=== PATIENT | male | born 1965 | race Caucasian/White ===

== ENCOUNTER 2018-02-03 14:39 | Emergency (ER) | payer SELFPAY ==
[2018-02-03 14:50] VITALS: BP 150/93
--- NOTE | 2018-02-03 15:45 | CR ---
Clinical history: 52-year-old male pain and swelling right knee. Interpretation: Suprapatellar bursal effusion this patient with chondromalacia patella and tiny marginal arthritic sp ur patellofemoral surface of patella. Bony spurs involving the intercondylar tibial spines but symmetric normal spacing of the knee joint. Homogeneous normal bone density without sign of pathologic skeletal lesion, right knee fracture, disl ocation or radiopaque loose joint body. CONCLUSION: Arthritis.
--- NOTE | 2018-02-03 15:50 | CR ---
Clinical history: 52-year-old male pain and swelling right knee, ankle and foot. Interpretation: 3 views right foot confirms soft tissue swelling over the dorsum and right ankle join t effusion with bimalleolar soft tissue swelling. History trauma? Multiarticular arthritis? No sign of right foot fracture or dislocation (minimal arthritic changes first metatarsophalangeal isabel ints great toe and tiny heel spurs at the insertion Achilles tendon and plantar aponeurosis on the os calcis). No foreign bodies or inflammatory periostitis.
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
[2018-02-03] MEDS ORDERED: Acetaminophen/HYDROcodone 325-5 MG Tab PO ONE (16:16)
[2018-02-03 16:21] LABS: SODIUM,NA 135 mmol/L (135-145)
--- NOTE | 2018-02-03 17:59 | CR ---
Clinical history: 52-year-old male pain and swelling right ankle. Interpretation: Bimalleolar soft tissue swelling and right ankle joint effusion. Homogeneous normal bone density without sign of right ankle fracture or disruption of the tibiotalar mortise joint symmetry (there are some marginal spurs medial and lateral malleolus). Small heel spurs at the insertion Achilles tendon and plantar aponeurosis on the os calcis. No foreign bodies. CONCLUSION: Arthritis. Pronounced soft tissue swelling and ankle joint effusion.
== END 2018-02-03 16:25 | disposition home or self-care (01) ==
LOC: DL.ED 14:39
DX: M10.49 Other secondary gout, multiple sites (principal); M79.89 Other specified soft tissue disorders; M25.561 Pain in right knee; M25.461 Effusion, right knee; M25.571 Pain in right ankle and joints of right foot; F17.210 Nicotine dependence, cigarettes, uncomplicated
CPT/HCPCS: 36415; 73562; 73610; 73630; 80048; 84550; 85025; 99283; A9270

== ENCOUNTER 2021-03-17 08:22 | Emergency (ER) | payer MEDICAID ==
[2021-03-17] MEDS ORDERED: Sodium Chloride 0.9% 10 ML Syringe FLUSH PRN (08:31)
--- NOTE | 2021-03-17 08:31 | EDM.PDOC ---
"ED HPI GENERAL MEDICAL PROBLEM - General Chief Complaint: Chest Pain Stated Complaint: [id number] CHEST PAIN Time Seen by Provider: 03/17/21 08:31 Source of Information: Reports: Patient, Family, Old Records, RN, RN Notes Reviewed History Limitations: Reports: No Limitations - History of Present Illness INITIAL COMMENTS - FREE TEXT/NARRATIVE: Pt presents to ER with complaints of left side chest pain that started last after he hit his chest with a tool. Pt states he had to lay on a board to pull a well pump up by hand. This morning he reports feeling a pop and/or clicking in his left lateral middle ribs. Pain is 9/10 with movement or deep cough. At rest there is no pain. Denies nausea, vomiting, and no shortness of breath. Onset: Sudden Onset Date: 03/12/21 Duration: Constant, Getting Worse Location: Reports: Chest Quality: Reports: Ache Severity: Severe Improves with: Reports: Immobilization, Rest Worsens with: Reports: Breathing, Movement Associated Symptoms: Reports: No Other Symptoms Treatments FACIAL OPERATOR: Reports: NSAIDS - Related Data Allergies Allergy/AdvReac Type Severity Reaction Status Date / Time indomethacin Allergy Other Verified 04/30/19 12:10 fluticasone AdvReac Intermediate Headache Verified 04/30/19 12:10 [From Advair Diskus] salmeterol AdvReac Intermediate Headache Verified 04/30/19 12:10 [From Advair Diskus] Home Meds: Home Meds Acetaminophen [Tylenol] 650 mg PO Q4H PRN tablet 06/19/18 [Rx] Albuterol [Ventolin HFA] 2 puff INH Q6H PRN 08/16/18 [History] Ibuprofen 800 mg PO PRN 04/30/19 [History] Past Medical History - Past Health History Medical/Surgical History: Denies Medical/Surgical History HEENT History: Reports: Impaired Vision Cardiovascular History: Reports: None Respiratory History: Reports: Asthma Gastrointestinal History: Reports: Bowel Obstruction, Colon Polyp, Diverticulosis, Other (See Below) Other Gastrointestinal History: S/P COLONIC TUBULAR ADENOMA Genitourinary History: Reports: None Musculoskeletal History: Reports: Back Pain, Chronic, Gout Neurological History: Reports: None Psychiatric History: Reports: None Endocrine/Metabolic History: Reports: None Hematologic History: Reports: None Immunologic History: Reports: None Oncologic (Cancer) History: Reports: None Dermatologic History: Reports: None - Infectious Disease History Infectious Disease History: Reports: Chicken Pox - Past Surgical History Head Surgeries/Procedures: Reports: None HEENT Surgical History: Reports: None Cardiovascular Surgical History: Reports: None Respiratory Surgical History: Reports: None GI Surgical History: Reports: Colonoscopy, Polypectomy Male Surgical History: Reports: None Endocrine Surgical History: Reports: None Neurological Surgical History: Reports: None Musculoskeletal Surgical History: Reports: Arthroscopic Knee, Other (See Below) Other Musculoskeletal Surgeries/Procedures:: back surgery Oncologic Surgical History: Reports: None Dermatological Surgical History: Reports: None Social & Family History - Family History Family Medical History: No Pertinent Family History - Tobacco Use Tobacco Use Status *Q: Current Every Day Tobacco User Tobacco Use Within Last Twelve Months: Cigarettes - Caffeine Use Caffeine Use: Reports: Coffee Other Caffeine Use: AVERAGE OF 3-4 CUPS DAILY - Living Situation & Occupation Living situation: Reports: , with Family Occupation: Employed ED ROS GENERAL - Review of Systems Review Of Systems: Comprehensive ROS is negative, except as noted in HPI. ED EXAM, GENERAL - Physical Exam Exam: See Below Exam Limited By: No Limitations General Appearance: Alert, WD/WN, No Apparent Distress Nose: Normal Inspection Throat/Mouth: Normal Lips, Normal Voice, No Airway Compromise Head: Atraumatic, Normocephalic Neck: Normal Inspection, Supple, Non-Tender, Full Range of Motion Respiratory/Chest: No Respiratory Distress, Lungs Clear, Normal Breath Sounds, No Accessory Muscle Use, Other (Focal left lateral chest wall tenderness just below the left breast, no visible bruising, redness, swelling, or deformity.) Cardiovascular: Normal Peripheral Pulses, Regular Rate, Rhythm, No Edema, No Gallop, No JVD, No Murmur, No Rub GI/Abdominal: Normal Bowel Sounds, Soft, Non-Tender Back Exam: Normal Inspection. No: Vertebral Tenderness Extremities: Normal Inspection, Normal Range of Motion, Non-Tender, Normal Capillary Refill, No Pedal Edema Neurological: Alert, Oriented, CN II-XII Intact, Normal Cognition, Normal Gait, No Motor/Sensory Deficits Psychiatric: Normal Affect, Normal Mood Skin Exam: Warm, Dry, Intact, Normal Color, No Rash #1 Interpretation EKG Date: 03/17/21 Time: 08:32 Rhythm: Other (SR) Rate (Beats/Min): 85 [place]: Normal P-Wave: Present QRS: Normal ST-T: Normal QT: Normal Comparison: NA - No Prior EKG Course - Vital Signs Last Recorded V/S: Last Vital Signs Temp 98.1 F 03/17/21 08:37 Pulse 93 03/17/21 08:37 Resp 16 03/17/21 08:37 BP 149/101 H 03/17/21 08:37 Pulse Ox 99 03/17/21 08:37 - Orders/Labs/Meds Orders: Active Orders 24 hr Category Date Time Status EKG 12 Lead [EKG Documentation Completion] [] STAT Care 03/17/21 08:24 Active Peripheral IV Care [RC] . DIRECTED Care 03/17/21 08:31 Active Sodium Chloride 0.9% [Saline Flush] Med 03/17/21 08:31 Active 10 ml FLUSH ASDIRECTED PRN Peripheral IV Insertion Adult [OM.PC] Stat Oth 03/17/21 08:31 Ordered Medication Orders Sodium Chloride (Sodium Chloride 0.9% 10 Ml Syringe) 10 ml FLUSH ASDIRECTED PRN PRN Reason: Keep Vein Open Last Admin: 03/17/21 08:45 Dose: 10 ml Documented by: YVONNE Labs: Laboratory Tests 03/17/21 03/17/21 Range/Units 08:34 08:34 WBC 3.7 L (5.0-10.0) 10^3/uL RBC 4.46 L (4.6-6.2) 10^6/uL Hgb 14.8 (14.0-18.0) g/dL Hct 44.1 (40.0-54.0) % MCV 98.9 D (80-100) fL MCH 33.2 (27.0-34.0) pg MCHC 33.6 (33.0-35.0) g/dL Plt Count 143 L (150-450) 10^3/uL Neut % (Auto) 53.1 (42.2-75.2) % Lymph % (Auto) 31.6 (20.5-50.1) % [place] % (Auto) 12.1 H (2-8) % Eos % (Auto) 2.4 (1.0-3.0) % Baso % (Auto) 0.8 (0.0-1.0) % Sodium 133 L (136-145) mmol/L Potassium 4.0 (3.5-5.1) mmol/L Chloride 97 L (98-107) mmol/L Carbon Dioxide 22 (21-32) mmol/L Anion Gap 18.0 H (7-13) mEq/L BUN 7 (7-18) mg/dL Creatinine 0.94 (0.70-1.30) mg/dL Est Cr Clr Drug Dosing TNP Estimated GFR (MDRD) > 60 BUN/Creatinine Ratio 7.4 (No establ ref range) Glucose 196 H (70-99) mg/dL Calcium 8.6 (8.5-10.1) mg/dL Total Bilirubin 0.9 (0.2-1.0) mg/dL AST 86 H (15-37) U/L ALT 89 H (16-63) U/L Alkaline Phosphatase 73 (46-116) U/L Troponin I High Sens 6 (<=76) pg/mL Total Protein 7.6 (6.4-8.2) g/dL Albumin 3.8 (3.4-5.0) g/dL Globulin 3.8 Albumin/Globulin Ratio 1.0 Meds: Medications Generic Name Dose Route Start Last Admin Trade Name Freq PRN Reason Stop Dose Admin Sodium Chloride 10 ml 03/17/21 08:31 03/17/21 08:45 Sodium Chloride 0.9% 10 Ml Syringe FLUSH 10 ml ASDIRECTED PRN Administration Keep Vein Open Discontinued Medications Generic Name Dose Route Start Last Admin Trade Name Isaac PRN Reason Stop Dose Admin Aspirin 324 mg 03/17/21 08:33 03/17/21 08:45 Aspirin 81 Mg Tab.Chew PO 03/17/21 08:34 324 mg ONETIME ONE Administration Hydromorphone HCl 1 mg 03/17/21 08:33 03/17/21 08:44 Hydromorphone 1 Mg/Ml Syringe IVPUSH 03/17/21 08:34 1 mg ONETIME ONE Administration Iopamidol 100 ml 03/17/21 10:16 03/17/21 10:22 Iopamidol 612 Mg/Ml 100 Ml Bottle IVPUSH 03/17/21 10:17 Not Given ONETIME ONE Ondansetron HCl 4 mg 03/17/21 08:33 03/17/21 08:45 Ondansetron 4 Mg/2 Ml Sdv IV 03/17/21 08:34 4 mg ONETIME ONE Administration - Radiology Interpretation Free Text/Narrative:: [facility] [place] [facility] Final Radiology Report Call: [phone] assistance Online chat: [email or web address] Name: LORENA LEWIS Age: 55Years M Date: 03/17/2021 SSN: -- : 1965 Study: CR RIBS 2V W CHEST LT Requesting Physician: ASPEN RAMOS Images: 3 Addl Studies: Provided Clinical History: Left sided chest pain. Recent injury to left middle anterolateral ribs/chest Contrast: Contrast Medium: Contrast Amount: Contrast Method: Page 1 of 2 PROCEDURE INFORMATION: Exam: XR Left Ribs with PA Chest Exam date and time: 03/17/2021 9:11 AM Age: 55 years old Clinical indication: Other: Left sided chest pain; Additional info: Left sided chest pain. Recent injury to left middle anterolateral ribs/chest TECHNIQUE: Imaging protocol: XR Left ribs with PA chest. Views: 3 views COMPARISON: CT Chest w Cont 12/01/2018 1:53 PM FINDINGS: Lungs: Unremarkable. No consolidation. Pleural spaces: Unremarkable. No pleural effusion. No pneumothorax. Heart/Mediastinum: Unremarkable. No cardiomegaly. Bones/joints: No acute fracture. No abnormal bone density. Stable right convex curvature thoracic spine. L1 kyphoplasty. Soft tissues: Right nodule at the anterolateral 6th rib. IMPRESSION: 1. No visualized fracture. Dextroscoliosis thoracic spine. 2. Small right lung nodule could represent nipple shadow. Recommend repeat PA chest with nipple markers. Thank you for allowing us to participate in the care of your patient. Dictated and Authenticated by: Harmony Foote MD LORENA LEWIS | Final Radiology Report CONFIDENTIALITY STATEMENT This report is intended only for use by the referring physician, and only in accordance with law. If you received this in error, call [phone]. Page 2 of 2 03/17/2021 10:06 AM Central Time ([place] & [place]) *Pt claims he has a known right lung nodule, and just had a follow up CT scan last month from his [facility] provider, and the nodule is stable and being followed by his clinic doctor. Departure - Departure Time of Disposition: 10:42 Disposition: Home, Self-Care 01 Condition: Good Clinical Impression: Left-sided chest wall pain Costochondral separation Qualifiers: Encounter type: initial encounter Qualified Code(s): S23.29XA - Dislocation of other parts of thorax, initial encounter Instructions: Chest Wall Pain Forms: ED Department Discharge Additional Instructions: Rx: [place] 5mg/325mg *Do not drive while under the influence of this medication. Do not drink alcohol while taking this medication. Rx: Lidocaine Ointment 5% Follow up in clinic if not improving as expected in two weeks. Sepsis Event Note (ED) - Focused Exam Vital Signs: Vital Signs Temp Pulse Resp BP Pulse Ox 03/17/21 08:37 98.1 F 93 16 149/101 H 99 - My Orders Last 24 Hours: My Active Orders 03/17/21 08:24 EKG 12 Lead [EKG Documentation Completion] [RC] STAT 03/17/21 08:31 Peripheral IV Care [RC] . DIRECTED Sodium Chloride 0.9% [Saline Flush] 10 ml FLUSH ASDIRECTED PRN Peripheral IV Insertion Adult [OM.PC] Stat - Assessment/Plan Last 24 Hours: My Active Orders 03/17/21 08:24 EKG 12 Lead [EKG Documentation Completion] [RC] STAT 03/17/21 08:31 Peripheral IV Care [RC] . DIRECTED Sodium Chloride 0.9% [Saline Flush] 10 ml FLUSH ASDIRECTED PRN Peripheral IV Insertion Adult [OM.PC] Stat"
[2021-03-17] MEDS ORDERED: Aspirin 81 MG Tab.Chew PO ONE (08:33)
[2021-03-17] MEDS ORDERED: Ondansetron 4 MG/2 ML SDV IV ONE (08:33)
[2021-03-17] MEDS ORDERED: HYDROmorphone 1 MG/ML Syringe IVPUSH ONE (08:33)
[2021-03-17 08:47] VITALS: BP 149/101; PULSE 93
[2021-03-17 09:10] LABS: CHLORIDE,CL 97 mmol/L (98-107); SODIUM,NA 133 mmol/L (136-145)
--- NOTE | 2021-03-17 10:07 | CR ---
PROCEDURE INFORMATION: Exam: XR Left Ribs with PA Chest Exam date and time: 03/17/2021 9:11 AM Age: 55 years old Clinical indication: Other: Left sided chest pain; Additional info: Left sided chest pain. Recent injury to left middle anterolateral ribs/chest TECHNIQUE: Imaging protocol: XR Left ribs with PA chest. Views: 3 views COMPARISON: CT Chest w Cont 12/01/2018 1:53 PM FINDINGS: Lungs: Unremarkable. No consolidation. Pleural spaces: Unremarkable. No pleural effusion. No pneumothorax. Heart/Mediastinum: Unremarkable. No cardiomegaly. Bones/joints: No acute fracture. No abnormal bone density. Stable right convex curvature thoracic spine. L1 kyphoplasty. Soft tissues: Right nodule at the anterolateral 6th rib. IMPRESSION: 1. No visualized fracture. Dextroscoliosis thoracic spine. 2. Small right lung nodule could represent nipple shadow. Recommend repeat PA chest with nipple markers.
[2021-03-17] MEDS ORDERED: Iopamidol 612 MG/ML 100 ML Bottle IVPUSH ONE (10:16)
[2021-03-17] MEDS ORDERED: Acetaminophen/HYDROcodone 325-10 MG Tab PO ONE (10:47)
== END 2021-03-17 11:05 | disposition home or self-care (01) ==
LOC: DL.ED 08:22
DX: S23.29XA Dislocation of other parts of thorax, initial encounter (principal); J45.909 Unspecified asthma, uncomplicated; M10.9 Gout, unspecified; Z72.0 Tobacco use; Z88.8 Allergy status to other drugs, medicaments and biological substances; Z88.6 Allergy status to analgesic agent; W22.8XXA Striking against or struck by other objects, initial encounter
CPT/HCPCS: 36415; 71101-LT; 80053; 84484; 85025; 93005; 96374; 96375; 99284-25; A9270-GY; J1170; J2405

== ENCOUNTER 2021-09-14 11:49 | Emergency (ER) | payer BC, MEDICAID ==
[2021-09-14 12:10] VITALS: BP 129/88; PULSE 112
[2021-09-14] MEDS ORDERED: Sodium Chloride 0.9% 1,000 ML IV ONE (13:20)
[2021-09-14] MEDS ORDERED: HYDROmorphone 1 MG/ML Syringe IVPUSH ONE ×2 (13:20→15:37)
[2021-09-14] MEDS ORDERED: Ondansetron 4 MG/2 ML SDV IV ONE (13:20)
[2021-09-14] MEDS ORDERED: Sodium Chloride 0.9% 10 ML Syringe FLUSH PRN (13:21)
[2021-09-14 14:40] LABS: CHLORIDE,CL 100 mmol/L (98-107); SODIUM,NA 136 mmol/L (136-145)
[2021-09-14 15:02] LABS: CORONAVIRUS COVID-19 NAA NEGATIVE (NEGATIVE)
[2021-09-14] MEDS ORDERED: Iopamidol 612 MG/ML 100 ML Bottle IVPUSH ONE (15:19)
[2021-09-14] MEDS ORDERED: Piperacillin/Tazobactam 4.5 GM in Sodium Chloride 0.9% 100 ML IV ONE (15:54)
== END 2021-09-14 16:41 | disposition home or self-care (01) ==
LOC: DL.ED 11:49
DX: K57.32 Diverticulitis of large intestine without perforation or abscess without bleeding (principal); K76.0 Fatty (change of) liver, not elsewhere classified; K59.09 Other constipation; Z20.822 Contact with and (suspected) exposure to COVID-19; Z79.899 Other long term (current) drug therapy; Z88.8 Allergy status to other drugs, medicaments and biological substances
CPT/HCPCS: 0240U; 36415; 74177; 80053; 81003; 82150; 83605; 83690; 85025; 86140; 87040; 87077; 87186; 96365; 96375; 96376; 99284-25; J1170; J2405; J2543; J7030; Q9967

== ENCOUNTER 2021-11-01 21:45 | Emergency (ER) | payer BC, MEDICAID ==
[2021-11-01] MEDS ORDERED: Aspirin 81 MG Tab.Chew PO ONE (22:02)
[2021-11-01] MEDS ORDERED: Aspirin 81 MG Tab.Chew ONE (22:02)
[2021-11-01 22:30] LABS: ANION GAP 17.5 mEq/L (7-13); CHLORIDE,CL 99 mmol/L (98-107); SODIUM,NA 137 mmol/L (136-145)
[2021-11-01 22:36] VITALS: BP 158/95; PULSE 95
[2021-11-01] MEDS ORDERED: GI Cocktail Oral Solution 30 ML PO ONE (22:47)
== END 2021-11-01 23:51 | disposition home or self-care (01) ==
LOC: DL.ED 21:45
DX: K21.9 Gastro-esophageal reflux disease without esophagitis (principal); Z88.8 Allergy status to other drugs, medicaments and biological substances
CPT/HCPCS: 36415; 71045; 80053; 83605; 84484; 85025; 85379; 85610; 87040; 93005; 99285; A9270

== ENCOUNTER 2022-01-19 06:30 | Day surgery (SDC) | payer MEDICAID ==
[~2022-01-19 06:30] MED LIST: Dextrose 5%-0.45% NaCl 1,000 ML IV SCH; Midazolam 1 MG/ML 2 ML SDV ONE; Sodium Chloride 0.9% 10 ML Syringe FLUSH PRN; Sodium Chloride 0.9% 10 ML Syringe FLUSH SCH; fentaNYL 100 MCG/2 ML SDV ONE
[2022-01-19] MEDS ORDERED: fentaNYL 100 MCG/2 ML SDV IV ONE ×3 (06:31→07:57)
[2022-01-19] MEDS ORDERED: Midazolam 1 MG/ML 2 ML SDV IV ONE ×3 (06:31→07:58)
[2022-01-19 09:20] VITALS: BP 141/92; PULSE 69
== END 2022-01-19 10:16 | disposition home or self-care (01) ==
LOC: DL.ENDO 06:30
PROVIDERS: ATTEND Internal Medicine Gastroenterology
DX: R19.7 Diarrhea, unspecified (principal); R10.9 Unspecified abdominal pain; D69.6 Thrombocytopenia, unspecified; K21.9 Gastro-esophageal reflux disease without esophagitis; E11.9 Type 2 diabetes mellitus without complications; K57.30 Diverticulosis of large intestine without perforation or abscess without bleeding; M10.9 Gout, unspecified; K43.9 Ventral hernia without obstruction or gangrene; I10 Essential (primary) hypertension; E66.09 Other obesity due to excess calories; Z68.29 Body mass index [BMI] 29.0-29.9, adult; Z88.8 Allergy status to other drugs, medicaments and biological substances; Z87.19 Personal history of other diseases of the digestive system; Z86.010 Personal history of colon polyps; Z01.812 Encounter for preprocedural laboratory examination; Z20.822 Contact with and (suspected) exposure to COVID-19
CPT/HCPCS: 87077; J2250; J3010; J7042; U0002

== ENCOUNTER → 2022-09-13 | Day surgery (SDC) | payer MEDICAID ==
[~2022-09-13] MED LIST changes: +Midazolam 1 MG/ML 2 ML SDV IV ONE; +fentaNYL 100 MCG/2 ML SDV IV ONE
[2022-09-13 09:38] VITALS: BP 145/87; PULSE 74
== END | disposition home or self-care (01) ==
LOC: DL.ENDO 06:29
PROVIDERS: ATTEND Internal Medicine Gastroenterology
DX: K63.5 Polyp of colon (principal); I10 Essential (primary) hypertension; E66.09 Other obesity due to excess calories; E11.9 Type 2 diabetes mellitus without complications; E78.5 Hyperlipidemia, unspecified; K21.9 Gastro-esophageal reflux disease without esophagitis; Z68.29 Body mass index [BMI] 29.0-29.9, adult; Z79.899 Other long term (current) drug therapy
CPT/HCPCS: J2250; J3010; J7042

== ENCOUNTER 2022-12-02 13:08 | Emergency (ER) | payer MEDICAID ==
[2022-12-02] MEDS ORDERED: Ondansetron 4 MG/2 ML SDV IVPUSH ONE (13:18)
[2022-12-02] MEDS ORDERED: HYDROmorphone 0.5 MG/0.5 ML Syringe IVPUSH ONE ×2 (13:18→14:30)
[2022-12-02] MEDS: Sodium Chloride 0.9% 10 ML Syringe FLUSH PRN ×2 (13:38→14:25)
[2022-12-02 13:55] LABS: ANION GAP 15.1 mEq/L (7-13); CHLORIDE,CL 101 mmol/L (98-107); ESTIMATED GFR 90 mL/min (>=60); SODIUM,NA 137 mmol/L (136-145)
[2022-12-02] MEDS ORDERED: Sodium Chloride 0.9% 1,000 ML IV ONE (14:06)
[2022-12-02] MEDS: Iopamidol 612 MG/ML 100 ML Bottle IVPUSH ONE ×2 (14:10→14:39)
[2022-12-02 15:19] VITALS: BP 140/96; PULSE 96
== END 2022-12-02 15:16 | disposition home or self-care (01) ==
LOC: DL.ED 13:08
DX: K57.32 Diverticulitis of large intestine without perforation or abscess without bleeding (principal); E78.00 Pure hypercholesterolemia, unspecified; I10 Essential (primary) hypertension; J45.909 Unspecified asthma, uncomplicated; E11.9 Type 2 diabetes mellitus without complications; M10.9 Gout, unspecified; Z72.0 Tobacco use; Z88.8 Allergy status to other drugs, medicaments and biological substances; Z79.899 Other long term (current) drug therapy
CPT/HCPCS: 36415; 74177; 80053; 83605; 85025; 86140; 87040; 96361; 96374; 96375; 96376; 99284; J1170; J2405; J7030; Q9967; J3490

== ENCOUNTER 2024-07-20 11:32 | Inpatient (IN) | payer MEDICAID ==
[2024-07-20] MEDS: Iopamidol 612 MG/ML 100 ML Bottle IVPUSH ONE (11:52)
[2024-07-20 12:08] LABS: BASOPHILS PERCENT AUTO 0.2 % (0.0-1.0); EOSINOPHILS PERCENT AUTO 1.1 % (1.0-3.0); HEMATOCRIT 42.3 % (40.0-54.0); HEMOGLOBIN 14.2 g/dL (14.0-18.0); LYMPHOCYTES PERCENT AUTO 15.2 % (20.5-50.1); MEAN CORPUSCULAR HEMOGLOBIN 32.3 pg (27.0-34.0); MEAN CORPUSCULAR HGB CONC 33.6 g/dL (33.0-35.0); MEAN CORPUSCULAR VOLUME 96.4 fL (80-100); MONOCYTES PERCENT AUTO 6.9 % (2-8); NEUTROPHILS PERCENT AUTO 76.6 % (42.2-75.2); PLATELET COUNT,PLT 158 10^3/uL (150-450); RED BLOOD CELL COUNT 4.39 10^6/uL (4.6-6.2); WHITE BLOOD CELL COUNT,WBC 10.2 10^3/uL (5.0-10.0)
[2024-07-20 12:09] LABS: APPEARANCE,URINE CLEAR (CLEAR); BILIRUBIN,URINE NEGATIVE (NEGATIVE); COLOR,URINE YELLOW (YELLOW); GLUCOSE,URINE 500 (NEGATIVE); KETONES,URINE NEGATIVE (NEGATIVE); LEUKOCYTE ESTERASE,URINE NEGATIVE (NEGATIVE); NITRITE,URINE NEGATIVE (NEGATIVE); OCCULT BLOOD,URINE NEGATIVE (NEGATIVE); PH,URINE 5.5 (5.0-9.0); PROTEIN,URINE NEGATIVE (NEGATIVE); UROBILINOGEN,URINE 0.2 mg/dL (0.2-1.0)
[2024-07-20] MEDS: Morphine 2 MG/ML SYRINGE IVPUSH ONE ×2 (12:10→13:22)
[2024-07-20] MEDS: Sodium Chloride 0.9% 1,000 ML IV ONE (12:10)
[2024-07-20] MEDS: Ondansetron 4 MG/2 ML SDV IVPUSH ONE (12:10)
[2024-07-20 12:23] LABS: A/G RATIO 1.1; ANION GAP 17.2 mEq/L (7-13); BILIRUBIN TOTAL 1.3 mg/dL (0.2-1.0); BUN/CREATININE RATIO 12.1 (No establ ref range); C-REACTIVE PROTEIN 2.22 ng/dL (<=0.50); CALCIUM 9.2 mg/dL (8.5-10.1); CREATININE 1.07 mg/dL (0.70-1.30); EST CRCL DRUG DOSING (CG) 74.33 mL/min; MAGNESIUM 1.9 mg/dL (1.8-2.4); POTASSIUM,K 4.2 mmol/L (3.5-5.1); PROTEIN TOTAL,TP 7.6 g/dL (6.4-8.2)
[2024-07-20 12:28] LABS: LACTIC ACID 2.3 mmol/L (0.4-2.0)
[2024-07-20] MEDS: metroNIDAZOLE/Normal Saline 500 MG in Premix Bag 1 BAG IV ONE (12:41)
[2024-07-20] MEDS: Ciprofloxacin in D5W 400 MG in Premix Bag 1 BAG IV ONE (12:43)
[2024-07-20] MEDS: Sodium Chloride 0.9% 1,500 ML IV ONE (13:21)
[2024-07-20] MEDS ORDERED: hydrALAZINE 20 MG/ML SDV IVPUSH PRN (14:25)
[2024-07-20] MEDS ORDERED: Metoprolol Tartrate 5 MG/5 ML SDV IVPUSH PRN (14:25)
[2024-07-20] MEDS ORDERED: Albuterol/Ipratropium 3.0-0.5 MG/3 ML Neb Soln NEB PRN (14:31)
[2024-07-20] MEDS ORDERED: Morphine 2 MG/ML SYRINGE IVPUSH PRN (14:31)
[2024-07-20] MEDS ORDERED: Polyethylene Glycol 3350 Powder 17 GM Packet PO PRN (14:31)
[2024-07-20] MEDS ORDERED: Ondansetron 4 MG/2 ML SDV IVPUSH PRN (14:31)
[2024-07-20] MEDS ORDERED: Bisacodyl 5 MG Tab PO PRN (14:31)
[2024-07-20] MEDS ORDERED: Naloxone 2 MG/2 ML Syringe IVPUSH PRN (14:31)
[2024-07-20] MEDS ORDERED: Metoclopramide 10 MG/2 ML SDV IV PRN (14:31)
[2024-07-20] MEDS ORDERED: Magnesium Hydroxide 400 MG/5 ML Susp 30 ML Cup PO PRN (14:31)
[2024-07-20] MEDS ORDERED: Acetaminophen 325 MG Tab PO PRN (14:31)
[2024-07-20] MEDS ORDERED: Allopurinol 100 MG Tab PO PRN (14:46)
[2024-07-20] MEDS: Acetaminophen/oxyCODONE 325-5 MG Tab PO PRN (15:14)
[2024-07-20] MEDS: Nicotine 21 MG/24 Hr Patch TRDERM ONE (15:16)
[2024-07-20] MEDS: Dextrose 5%-0.9% NaCl 1,000 ML IV SCH (15:16)
[2024-07-20] MEDS: metroNIDAZOLE/Normal Saline 500 MG in Premix Bag 1 BAG IV SCH (19:55)
[2024-07-20] MEDS: Temazepam 15 MG Cap PO PRN (21:01)
[2024-07-20] MEDS: Ciprofloxacin in D5W 400 MG in Premix Bag 1 BAG IV SCH (21:01)
[2024-07-20] MEDS: Rosuvastatin 10 MG Tab PO SCH (21:01)
[2024-07-20] MEDS: Saccharomyces Boulardii (Probiotic) 250 MG Cap PO SCH (21:01)
[2024-07-20] MEDS: Check NICOTINE Patch TRDERM SCH (21:02)
[2024-07-21 06:28] LABS: BASOPHILS PERCENT AUTO 0.3 % (0.0-1.0); EOSINOPHILS PERCENT AUTO 2.3 % (1.0-3.0); HEMATOCRIT 39.2 % (40.0-54.0); LYMPHOCYTES PERCENT AUTO 18.5 % (20.5-50.1); MEAN CORPUSCULAR HEMOGLOBIN 32.7 pg (27.0-34.0); MEAN CORPUSCULAR HGB CONC 33.2 g/dL (33.0-35.0); MEAN CORPUSCULAR VOLUME 98.7 fL (80-100); MONOCYTES PERCENT AUTO 9.5 % (2-8); NEUTROPHILS PERCENT AUTO 69.4 % (42.2-75.2); PLATELET COUNT,PLT 148 10^3/uL (150-450); RED BLOOD CELL COUNT 3.97 10^6/uL (4.6-6.2)
[2024-07-21 06:51] LABS: ALBUMIN 3.2 g/dL (3.4-5.0); ANION GAP 13.3 mEq/L (7-13); BILIRUBIN TOTAL 0.9 mg/dL (0.2-1.0); BUN/CREATININE RATIO 9.4 (No establ ref range); CALCIUM 8.6 mg/dL (8.5-10.1); CREATININE 0.85 mg/dL (0.70-1.30); EST CRCL DRUG DOSING (CG) 93.57 mL/min; MAGNESIUM 2.2 mg/dL (1.8-2.4); POTASSIUM,K 4.3 mmol/L (3.5-5.1); PROTEIN TOTAL,TP 6.6 g/dL (6.4-8.2)
[2024-07-21 06:52] LABS: A/G RATIO 0.94
[2024-07-21 07:39] VITALS: BP 132/83; PULSE 82
[2024-07-21] MEDS: Empagliflozin 10 MG Tab PO SCH (08:54)
[2024-07-21] MEDS: Losartan 50 MG Tab PO SCH (08:55)
[2024-07-21] MEDS: Nicotine 21 MG/24 Hr Patch TRDERM SCH (08:55)
== END 2024-07-21 10:20 | disposition left against medical advice (07) | DRG 392 ==
LOC: DL.ED 11:32 → DL.MS 14:07
PROVIDERS: ADMIT Internal Medicine; ATTEND Internal Medicine
DX: K57.32 Diverticulitis of large intestine without perforation or abscess without bleeding (principal); K21.9 Gastro-esophageal reflux disease without esophagitis; K75.81 Nonalcoholic steatohepatitis (NASH); M10.9 Gout, unspecified; H54.7 Unspecified visual loss; E78.00 Pure hypercholesterolemia, unspecified; I10 Essential (primary) hypertension; J45.909 Unspecified asthma, uncomplicated; M19.90 Unspecified osteoarthritis, unspecified site; D72.829 Elevated white blood cell count, unspecified; E11.65 Type 2 diabetes mellitus with hyperglycemia; F17.210 Nicotine dependence, cigarettes, uncomplicated; F10.90 Alcohol use, unspecified, uncomplicated; R79.89 Other specified abnormal findings of blood chemistry; Z88.0 Allergy status to penicillin; Z79.899 Other long term (current) drug therapy; Z79.51 Long term (current) use of inhaled steroids; Z79.84 Long term (current) use of oral hypoglycemic drugs; Z86.0100 Personal history of colon polyps, unspecified; Z98.890 Other specified postprocedural states; Z88.8 Allergy status to other drugs, medicaments and biological substances
CPT/HCPCS: 36415; 74177; 80053; 81003; 83605; 83690; 83735; 84145; 85025; 86140; 87040; 96361; 96365; 96368; 96375; 99222; 99238; 99285-25; A9270-GY; J0744; J1836; J2270; J2405; J7030; J7042; Q9967